=== PATIENT | female | born 1995 | race African-American/Black ===

== ENCOUNTER 2016-08-15 14:48 | Emergency (ER) | payer OTHER ==
[2016-08-15 14:54] VITALS: BP 126/60; PULSE 89; TEMP 98; BMI 27.3
--- NOTE | 2016-08-15 15:43 | PDOC ---
History of Present Illness - General Chief Complaint: Constipation Stated Complaint: BLOOD IN STOOL, CONSTIPATED Time Seen by Provider: 08/15/16 15:13 History Source: Patient Exam Limitations: No Limitations - History of Present Illness Travel History: No Initial Comments: 08/15/16 15:36 20 yr female states she has been constipated for 2 weeks was straining to have a bowel movement this am and noticed blood in the toilet. No abd pain no cramping no bleeding now. no medical history, pt admits to having a poor diet and thinks this is causing her constipation. Past History - Past Medical History Allergies/Adverse Reactions: Allergies Allergy/AdvReac Type Severity Reaction Status Date / Time cat dander Allergy Verified 08/15/16 14:54 No Known Drug Allergies Allergy Verified 08/15/16 14:54 Home Medications: Ambulatory Orders Polyethylene Glycol 3350 [Miralax (For Bowel Prep) -] 17 gm PO DAILY #1 bottle 08/15/16 - Surgical History Other Surgical History: 08/15/16 15:38 none - Psycho/Social/Smoking Cessation Hx Suicidal Ideation: No Smoking History: Never smoked Information on smoking cessation initiated: No Hx Alcohol Use: No Drug/Substance Use Hx: No Substance Use Type: None Abd/GI Specific PMHX - Complaint Specific PMHX Colitis: No Diverticulitis: No Gall Bladder Disease: No GERD: No Hepatitis: No Irritable Bowel Synd (IBS): No Pancreatitis: No GI Ulcer Disease: No Review of Systems - Review of Systems Able to Perform ROS?: Yes Is the patient limited Ugandan proficient: No Constitutional: No: Symptoms Reported HEENTM: No: Symptoms Reported Respiratory: No: Symptoms reported Cardiac (ROS): No: Symptoms Reported ABD/GI: Yes: Symptoms Reported : No: Symptoms Reported *Physical Exam - Vital Signs Last Vital Signs Temp Pulse Resp BP Pulse Ox 98 F 89 18 126/60 99 08/15/16 14:51 08/15/16 14:51 08/15/16 14:51 08/15/16 14:51 08/15/16 14:51 - Physical Exam General Appearance: Yes: Nourished, Appropriately Dressed HEENT: positive: EOMI, VONNIE, Normal ENT Inspection, TMs Normal, Pharynx Normal Neck: positive: Supple. negative: Tender Respiratory/Chest: positive: Lungs Clear, Normal Breath Sounds Cardiovascular: positive: Regular Rhythm, Regular Rate Gastrointestinal/Abdominal: positive: Normal Bowel Sounds, Soft. negative: Tender Rectal Exam: positive: normal exam, normal rectal tone. negative: hemorrhoids Musculoskeletal: positive: Normal Inspection Extremity: positive: Normal Inspection, Normal Range of Motion Integumentary: positive: Normal Color, Dry, Warm Neurologic: positive: Fully Oriented, Alert, Normal Mood/Affect, Normal Response , Motor Strength 5/5 Medical Decision Making - Medical Decision Making 08/15/16 15:38 cc: constipation with blood noted in toilet while straining to have BM no abd pain or cramping, neg nvd 08/15/16 16:18 vitals stable no bleeding no abd pain *DC/Admit/Observation/Transfer Diagnosis at time of Disposition: Constipation Qualifiers: Constipation type: unspecified constipation type Qualified Code(s): K59.00 - Constipation, unspecified - Discharge Dispostion Disposition: HOME Condition at time of disposition: Good - Prescriptions Prescriptions: Polyethylene Glycol 3350 [Miralax (For Bowel Prep) -] 17 gm PO DAILY #1 bottle - Referrals Referrals: STAFF,NOT ON [Primary Care Provider] - Cresencio Agudelo MD [Staff Physician] - - Patient Instructions Printed Discharge Instructions: DI for Constipation Additional Instructions: Miralax as directed go to the [facility] and get a Fleets enema to help you have a bowel movement drink Prune Juice or eat Prunes daily to help follow with the soaker meat Dr. Agudelo for follow up if no improvement or worsening symptoms return to the ER
== END 2016-08-15 16:19 | disposition home or self-care (01) ==
LOC: JERFT 14:48
DX: K59.00 Constipation, unspecified (principal)
CPT/HCPCS: 99281-25

== ENCOUNTER 2016-10-21 20:32 | Emergency (ER) | payer OTHER ==
[2016-10-21 20:41] VITALS: BP 117/57; PULSE 82; TEMP 98.1; BMI 29.6
[2016-10-21] MEDS ORDERED: CEPHALEXIN MONOHYDRATE 500 MG CAPSULE (UD) PO ONE (21:47)
[2016-10-21] MEDS ORDERED: CEPHALEXIN MONOHYDRATE 500 MG CAPSULE (UD) ONE (21:51)
--- NOTE | 2016-10-21 21:53 | PDOC ---
History of Present Illness - General Chief Complaint: Rash Stated Complaint: FOOT RASH Time Seen by Provider: 10/21/16 21:01 History Source: Patient Exam Limitations: No Limitations - History of Present Illness Initial Comments: 10/21/16 21 My chief complaint: Flare of of eczema left arm bilateral feet History of present illness: Patient is a 20-year-old female with a history of eczema here today complaining of having a flare up of her eczema. Patient has patchy dry skin noted on left dorsal elbow area and bilateral feet. Patient reports that right foot is worse with cracking of skin and oozing of yellowish discharge for the last few days. Patient has been moisturizing her scan with set of fell and use her and EUCERIN. Denies any fever. Patient denies any other symptoms. Timing/Duration: getting worse Severity: moderate Associated Symptoms: reports: rash (EZCEMA RASH LEFT MEDIAL ELBOWS, B/L FEET, RT. FOOT RASH SCALEY WITH CRACKING OF SKIN ) Past History - Past Medical History Allergies/Adverse Reactions: Allergies Allergy/AdvReac Type Severity Reaction Status Date / Time cat dander Allergy Verified 10/21/16 20:41 No Known Drug Allergies Allergy Verified 10/21/16 20:41 Home Medications: Ambulatory Orders Cephalexin Monohydrate [Keflex -] 500 mg PO Q8H #21 capsule 10/21/16 Triamcinolone 0.025% Ointment [Aristocort 0.025% Ointment -] 1 applic TP BID #1 tube MDD 2 10/21/16 Other medical history: EZCEMA - Psycho/Social/Smoking Cessation Hx Suicidal Ideation: No Smoking History: Never smoked Have you smoked in the past 12 months: No Information on smoking cessation initiated: No Hx Alcohol Use: No Drug/Substance Use Hx: No Substance Use Type: None Review of Systems - Review of Systems Able to Perform ROS?: Yes Constitutional: No: Symptoms Reported HEENTM: No: Symptoms Reported Respiratory: No: Symptoms reported Cardiac (ROS): No: Symptoms Reported ABD/GI: No: Symptoms Reported : No: Symptoms Reported Musculoskeletal: No: Symptoms Reported Integumentary: Yes: Rash (SCALEY RASH LEFT MEDIAL ELBOW, B/L DORSAL FEET, RIGHT FOOT OPEN AREA NOTED IN CENTER OF SCALEY RASH ) Neurological: No: Symptoms reported *Physical Exam - Vital Signs Last Vital Signs Temp Pulse Resp BP Pulse Ox 98.1 F 82 18 117/57 98 10/21/16 20:39 10/21/16 20:39 10/21/16 20:39 10/21/16 20:39 10/21/16 20:39 - Physical Exam General Appearance: Yes: Appropriately Dressed Respiratory/Chest: positive: Lungs Clear, Normal Breath Sounds. negative: Chest Tender, Respiratory Distress Cardiovascular: positive: Regular Rhythm, Regular Rate, S1, S2 Vascular Pulses: Dorsalis-Pedis (R): 4+, Doralis-Pedis (L): 4+ Integumentary: positive: Other (SCALEY PATCH LIKE RASH LEFT ELBOW AREA DORSAL, LEFT FOOT MULTIPLE AREAS OF SCALEY DRY PATCHES, RT. FOOT MULTIPLE AREAS OF DRY SCALEY PATCHES WITH TINY OPEN AREA ON RASH DORSAL FOOT) Procedures - Consent Consent obtained: Verbal, From Patient - Additional Procedures Progress: 10/21/16 21:53 Rash on right dorsal foot with TELFA AND ASHA Medical Decision Making - Medical Decision Making 10/21/16 21:56 Patient is a 20-year-old female with a history of eczema here today complaining of having a flare up of her eczema. Patient has patchy dry skin noted on left dorsal elbow area and bilateral feet. Patient reports that right foot is worse with cracking of skin and oozing of yellowish discharge for the last few days. Patient has been moisturizing her scan with set of fell and use her and EUCERIN. Denies any fever. Patient denies any other symptoms. EZCEMA EXACERBATION PLAN: Cleansed areas on right foot with Betadine and normal saline 0.9% dry. Apply bacitracin ointment with Cherie and Asha Keflex 500 mg by mouth now then every 8 hours 7 days Triaminicialone OINTMENT 0.025 % APPLY TO RASH BID *DC/Admit/Observation/Transfer Diagnosis at time of Disposition: Acute eczema - Discharge Dispostion Disposition: HOME Condition at time of disposition: Stable - Prescriptions Prescriptions: Triamcinolone 0.025% Ointment [Aristocort 0.025% Ointment -] 1 applic TP BID #1 tube MDD 2 Cephalexin Monohydrate [Keflex -] 500 mg PO Q8H #21 capsule - Referrals Referrals: Carla Mauricio MD [Primary Care Provider] - El Hernandez [Non Staff, Medical] - - Patient Instructions Additional Instructions: fOLLOW Up with window draper as soon as possible Cleanse areas on right foot that have discharge with antibacterial soap and water pat dry and apply a tiny amount of bacitracin ointment twice daily until healed Make sure you do not dry her skin thoroughly when getting out of the shower or bath limited remain moist and apply Eucerin cream or CETAPHIL Return to emergency room if symptoms worsen any fever PATIENT VOICED UNDERSTANDING OF Discharge instructions and all questions were answered
== END 2016-10-21 22:10 | disposition home or self-care (01) ==
LOC: JERFT 20:32 → SUPCPDRO 20:32 → JERFT 22:10
DX: L30.9 Dermatitis, unspecified (principal); L85.3 Xerosis cutis
CPT/HCPCS: 99281-25

== ENCOUNTER 2017-03-29 20:59 | Emergency (ER) | payer SELFPAY ==
--- NOTE | 2017-03-29 21:11 | PDOC ---
Rapid Medical Evaluation Chief Complaint: Pain Time Seen by Provider: 03/29/17 21:10 Medical Evaluation: Allergies Allergy/AdvReac Type Severity Reaction Status Date / Time cat dander Allergy Verified 03/29/17 21:05 No Known Drug Allergies Allergy Verified 03/29/17 21:05 Vital Signs Temp Pulse Resp BP Pulse Ox 98.1 F 83 20 126/65 100 03/29/17 21:06 03/29/17 21:06 03/29/17 21:06 03/29/17 21:06 03/29/17 21:06 03/29/17 21:10 I have performed a brief in-person evaluation of this patient. The patient presents with a chief complaint of: Left Ear Pain and Headache. Pertinent physical exam findings: Left Cerumen Impaction I have ordered the following: none. The patient will proceed to the ED for further evaluation Discharge Disposition - Referrals Referrals: Carla Mauricio MD [Primary Care Provider] - - Patient Instructions - Post Discharge Activity
[2017-03-29 21:14] VITALS: BP 126/65; PULSE 83; TEMP 98.1; BMI 29.2
--- NOTE | 2017-03-29 21:51 | PDOC ---
History of Present Illness - General Chief Complaint: Pain Stated Complaint: HEADACHE Time Seen by Provider: 03/29/17 21:10 History Source: Patient Exam Limitations: No Limitations - History of Present Illness Initial Comments: 03/29/17 21:56 My chief complaint: Headache 6 days and left ear clogged sensation History of present illness: Patient is a 21 year old female with history of eczema here today complaining of a frontal headache 6 days and slightly decreased hearing left ear with a clogged sensation. Patient reports that headache has waxed and waned has not been the worst headache ever does not wake her up from a sound sleep. Patient reports intermittent nausea. Patient denies any sore throat, cough, or any other symptoms. 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 Timing/Duration: intermittent (headache for 6 days, left ear cerumen impaction) Associated Symptoms: reports: headaches (frontal headache x 6 days ), other ( decreased hearing left ear) Past History - Past Medical History Allergies/Adverse Reactions: Allergies Allergy/AdvReac Type Severity Reaction Status Date / Time cat dander Allergy Verified 03/29/17 21:05 No Known Drug Allergies Allergy Verified 03/29/17 21:05 Home Medications: Ambulatory Orders Naproxen [Naprosyn -] 500 mg PO Q12H PRN #14 tablet 03/29/17 COPD: No Other medical history: Pt denies - Suicide/Smoking/Psychosocial Hx Smoking History: Never smoked Have you smoked in the past 12 months: No Information on smoking cessation initiated: No Hx Alcohol Use: No Drug/Substance Use Hx: No Substance Use Type: None Review of Systems - Review of Systems Able to Perform ROS?: Yes Constitutional: No: Symptoms Reported HEENTM: Yes: Hearing Loss (left ear clogged sensation ) Respiratory: No: Symptoms reported Cardiac (ROS): No: Symptoms Reported ABD/GI: No: Symptoms Reported : No: Symptoms Reported Musculoskeletal: No: Symptoms Reported Integumentary: No: Symptoms Reported Neurological: Yes: Headache (frontal headache x 6 days ) *Physical Exam - Vital Signs Last Vital Signs Temp Pulse Resp BP Pulse Ox 98.1 F 83 20 126/65 100 03/29/17 21:06 03/29/17 21:06 03/29/17 21:06 03/29/17 21:06 03/29/17 21:06 - Physical Exam General Appearance: Yes: Appropriately Dressed HEENT: positive: EOMI, VONNIE, TMs Normal (rt. ), Pharyngeal Erythema, Tonsillar Erythema (with no uvular deviation), Nasal Congestion (left nostril edema superior turbinate), Hearing Grossly Normal (b/l ), Other (cerumen left ear unable to see TM). negative: Tonsillar Exudate, Rhinorrhea, Sinus Tenderness Neck: negative: Lymphadenopathy (R), Lymphadenopathy (L) Respiratory/Chest: positive: Lungs Clear, Normal Breath Sounds. 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 negative: Numbness, Sensory Deficit Procedures - Consent Consent obtained: From Patient - Additional Procedures Progress: 03/29/17 22:55 LEFT EAR IRRIGATED WITH WARM WATER LARGE AMT OF CERUMEN REMOVED TM INTACT NON BULGING, NON ERYTHEMATOUS, HEARING IMPROVED Medical Decision Making - Medical Decision Making 03/29/17 21:58 Patient is a 21 year old female with history of eczema here today complaining of a frontal headache 6 days and slightly decreased hearing left ear with a clogged sensation. Patient reports that headache has waxed and waned has not been the worst headache ever does not wake her up from a sound sleep. Patient reports intermittent nausea. Patient denies any sore throat, cough, or any other symptoms. 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 Headache pharyngitis r/o strep left ear cerumen impaction PLAN: throat C & S rapid NEGATIVE urine hcg NEGATIVE 03/29/17 22:54 FEELING BETTER NAPROSYN 500 MG PO NOW THAN Q 12 HRS PRN PAIN LEFT EAR IRRIGATED LARGE AMOUNT OF CERUMEN REMOVED 03/29/17 22:56 HEADACHE HAS LESSENED 03/29/17 23:00 *DC/Admit/Observation/Transfer Diagnosis at time of Disposition: Impacted cerumen of left ear Head ache Qualifiers: Headache type: unspecified Headache chronicity pattern: unspecified pattern Intractability: not intractable Qualified Code(s): R51 - Headache - Discharge Dispostion Disposition: HOME Condition at time of disposition: Stable - Prescriptions Prescriptions: Naproxen [Naprosyn -] 500 mg PO Q12H PRN #14 tablet PRN Reason: Pain - Referrals Referrals: Carla Mauricio MD [Primary Care Provider] - - Patient Instructions Additional Instructions: FOLLOW UP WITH PRIMARY IN THE NEXT COUPLE OF DAYS RETURN TO EMERGENCY ROOM IF SYMPTOMS WORSEN OR REOCCUR PATIENT VOICED UNDERSTANDING OF DISCHARGE INSTRCUCTIONS AND ALL QUESTIONS WERE ANSWERED - Post Discharge Activity
== END 2017-03-29 23:05 | disposition home or self-care (01) ==
LOC: JER 20:59
PROC: 3E1B78Z Irrigation of Ear using Irrigating Substance, Via Natural or Artificial Opening (ICD-10-PCS; principal; 2017-03-29)
DX: H61.22 Impacted cerumen, left ear (principal); R51 Headache
CPT/HCPCS: 84703; 87070; 87430; 99281-25

== ENCOUNTER 2017-11-16 00:16 | Emergency (ER) | payer OTHER ==
[2017-11-16 00:21] VITALS: BP 119/57; PULSE 76; TEMP 98.6; BMI 30.2
--- NOTE | 2017-11-16 00:56 | PDOC ---
History of Present Illness - General Chief Complaint: Sore Throat Stated Complaint: SORE THROAT Time Seen by Provider: 11/16/17 00:30 - History of Present Illness Initial Comments: 11/16/17 00:45 22 yo F with no significant pmh who p/w sore throat. Patient reports worsening burning throat over the past 2 days. Also endorses chest/nasal pressure. Pain with swallowing, PO fluid and food intake. Recently seen in [facility] ED for sore throat (11/13/17) with neg strep testing. Attempted OTC analgesia, NSAIDS, chloraseptic sprays with no relief. Patient denies N/V, F,C, SOB, urinary complaints, abdominal pain, diarrhea, constipation, lightheadedness, weakness, sensory changes. PMHx: as noted above ROS: as noted SHx: Denies Etoh, tobacco, IVDA. Allergies: NKDA Past History - Past Medical History Allergies/Adverse Reactions: Allergies Allergy/AdvReac Type Severity Reaction Status Date / Time cat dander Allergy Verified 11/16/17 00:21 No Known Drug Allergies Allergy Verified 11/16/17 00:21 Home Medications: Ambulatory Orders Naproxen [Naprosyn -] 500 mg PO Q12H PRN #14 tablet 03/29/17 COPD: No - Suicide/Smoking/Psychosocial Hx Smoking History: Never smoked Have you smoked in the past 12 months: No Hx Alcohol Use: No Drug/Substance Use Hx: No Substance Use Type: None Review of Systems - Review of Systems Comments:: 11/16/17 00:45 GENERAL/CONSTITUTIONAL: No fever or chills. No weakness. HEAD, EYES, EARS, NOSE AND THROAT: + Sore throat. No change in vision. No ear pain or discharge. CARDIOVASCULAR: No chest pain or shortness of breath RESPIRATORY: No cough, wheezing, or hemoptysis. GASTROINTESTINAL: No nausea, vomiting, diarrhea or constipation. GENITOURINARY: No dysuria, frequency, or change in urination. MUSCULOSKELETAL: No joint or muscle swelling or pain. No neck or back pain. SKIN: No rash NEUROLOGIC: No headache, vertigo, loss of consciousness, or change in strength/ sensation. ENDOCRINE: No increased thirst. No abnormal weight change HEMATOLOGIC/LYMPHATIC: No anemia, easy bleeding, or history of blood clots. ALLERGIC/IMMUNOLOGIC: No hives or skin allergy. *Physical Exam - Vital Signs Last Vital Signs Temp Pulse Resp BP Pulse Ox 98.6 F 76 18 119/57 100 11/16/17 00:19 11/16/17 00:19 11/16/17 00:19 11/16/17 00:19 11/16/17 00:19 - Physical Exam Comments: 11/16/17 00:45 GENERAL: Awake, alert, and fully oriented, in no acute distress HEAD: No signs of trauma, normocephalic, atraumatic EYES: PERRLA, EOMI, sclera anicteric, conjunctiva clear ENT: Post oropharynx slightly erythematous. Auricles normal inspection, hearing grossly normal, nares patent, oropharynx without exudates. Moist mucosa NECK: Normal ROM, supple, no lymphadenopathy, JVD, or masses LUNGS: No distress, speaks full sentences, clear to auscultation bilaterally HEART: Regular rate and rhythm, normal S1 and S2, no murmurs, rubs or gallops, peripheral pulses normal and equal bilaterally. EXTREMITIES : Normal inspection, Normal range of motion, no edema. No clubbing or cyanosis. SKIN: Warm, Dry, normal turgor, no rashes or lesions noted Medical Decision Making - Medical Decision Making 11/16/17 01:46 22 yo F with no significant pmh who p/w sore throat. VSS, AF. Post. oropharynx slightly erythematous, with absent exudates, tonsilar swelling, uvular deviation. Pain likely 2/2 viral pharyngitis. Low suspicion paratonsilar abscess , retropharyngeal abscess, strep pharyngitis, mononucleosis. Ed course: Dexamethaosne 10 mg, Perocoet, Viscous lidocaine. Patient pain improved. Stable for d/c with return precautions. *DC/Admit/Observation/Transfer Diagnosis at time of Disposition: Sore throat (viral) - Discharge Dispostion Condition at time of disposition: Stable Decision to Admit order: No - Referrals Referrals: Carla Mauricio MD [Primary Care Provider] - - Patient Instructions Printed Discharge Instructions: DI for Viral Pharyngitis Additional Instructions: Please return to the emergency department with any new or worsening symptoms or concerns. Please follow up with your primary care physician within 72 hours. - Post Discharge Activity - Transfer to Acute Care Facility Transfer comment: 11/16/17 00:46 - Attestations Physician Attestion: 11/16/17 00:46 I attest to the information provided in this note.
[2017-11-16] MEDS ORDERED: LIDOCAINE VISCOUS 2% ORAL/TOP 20 ML UNIT-DOSE CUP MM ONE (01:41)
[2017-11-16] MEDS ORDERED: DEXAMETHASONE 4 MG TABLET (FP) PO ONE (01:45)
[2017-11-16] MEDS ORDERED: LIDOCAINE VISCOUS 2% ORAL/TOP 20 ML UNIT-DOSE CUP ONE (02:36)
[2017-11-16] MEDS ORDERED: DEXAMETHASONE SOD PHOSPHATE 10 MG/1 ML VIAL ONE (02:37)
[2017-11-16] MEDS ORDERED: IBUPROFEN 600 MG TABLET (FP) PO ONE (02:43)
--- NOTE | 2017-11-16 02:43 | PDOC ---
Attending Attestation - [facility] HPI: 11/16/17 02:50 The patient is a 22 year old female with no past medical history who presents to the emergency department for evaluation of sore throat. The patient reports a 2 day history of worsening sore throat, described as a burning sensation. Pt reports associated symptoms of chest pressure and dysphagia. She reports taking NSAIDS and chloraseptic sprays with no alleviation to aforementioned symptoms. Of note, the patient was recently seen in our facility for sore throat (11/13/17 ) with negative strep testing. The patient denies shortness of breath, headache, lightheadedness, sensory changes, fever, chills, nausea, vomiting, and any bowel/urinary symptoms. Allergies: Cat dander, NKDA Social History: No reported alcohol, cigarette, or drug use. Surgical History: Pt denies. PCP: Dr. Carla Mauricio ([phone]) - Physicial Exam PE: General Appearance: Yes: Appropriately Dressed. No: Apparent Distress, Intoxicated HEENT: positive: EOMI, VONNIE, Normal ENT Inspection, Normal Voice, TMs Normal, Pharynx Normal. negative: Pale Conjunctivae, Photophobia, Scleral Icterus (R), Scleral Icterus (L) Neck: positive: Trachea midline, Normal Thyroid, Supple. negative: Tender, Rigid, Carotid bruit, Stridor, Lymphadenopathy (R), Lymphadenopathy (L), Thyromegaly Respiratory/Chest: positive: Lungs Clear, Normal Breath Sounds. negative: Chest Tender, Respiratory Distress, Accessory Muscle Use, Labored Respiration, RES, Crackles, Rales, Rhonchi, Stridor, Wheezing, Dullness Cardiovascular: positive: Regular Rhythm, Regular Rate, S1, S2. negative: Edema , JVD, Murmur, Bradycardia, Tachycardia Vascular Pulses: Dorsalis-Pedis (R): 2+, Doralis-Pedis (L): 2+ Gastrointestinal/Abdominal: positive: Normal Bowel Sounds, Flat, Soft. negative : Tender, Organomegaly, Pulsatile Mass, Increased Bowel Sounds, Decreased BS, Distended, Guarding, Rebound, Hernia, Hepatomegaly, Spleenomegaly Lymphatic: negative: Adenopathy, Tenderness Musculoskeletal: positive: Normal Inspection. negative: CVA Tenderness, Decreased Range of Motion Extremity: positive: Normal Capillary Refill, Normal Inspection, Normal Range of Motion, Pelvis Stable. negative: Tender, Pedal Edema, Swelling, Erythema Integumentary: positive: Normal Color, Dry, Warm. 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 negative: EOM Palsy, Facial Droop, Sensory Deficit <Sawyer Trejo - Last Filed: 11/16/17 05:02> - Resident Resident Name: Peter Riojas - ED Attending Attestation I have performed the following: I have examined & evaluated the patient, The case was reviewed & discussed with the resident, I agree w/resident's findings & plan, Exceptions are as noted - Medical Decision Making 11/16/17 19:48 Pt treated and released. <Joseph Wells - Last Filed: 11/16/17 19:48> Attestations - Attestations Documentation prepared by Sawyer Trejo, acting as paramedical aide for Joseph Wells DO. <Sawyer Trejo - Last Filed: 11/16/17 05:02>
== END 2017-11-16 03:49 | disposition home or self-care (01) ==
LOC: JER 00:16
DX: J02.9 Acute pharyngitis, unspecified (principal); B97.89 Other viral agents as the cause of diseases classified elsewhere
CPT/HCPCS: 99281-25

== ENCOUNTER 2019-02-08 21:55 | Emergency (ER) | payer OTHER ==
[2019-02-08 22:31] VITALS: BP 104/67; PULSE 86; TEMP 98.2; BMI 27.8
[2019-02-08] MEDS ORDERED: guaiFENesin/CODEINE 10 ML UNIT-DOSE CUPS PO ONE (22:39)
[2019-02-08] MEDS ORDERED: guaiFENesin/CODEINE 5 ML UNIT-DOSE CUPS PO ONE (22:40)
--- NOTE | 2019-02-08 22:46 | PDOC ---
History of Present Illness - General Chief Complaint: Respiratory Stated Complaint: COUGH Time Seen by Provider: 02/08/19 22:33 History Source: Patient Exam Limitations: Clinical Condition - History of Present Illness Initial Comments: 02/08/19 22:40 Patient with no significant past medical history present with complaint of 2 weeks history of persistent cough with yellow sputum, nasal congestion and intermittent midsternal chest pain from coughing. Patient reports she was seen in urgent care week ago for symptoms and given albuterol inhaler for cough but has not been helping. Denies fever, chills, sore throat, nausea or vomiting. Denies shortness of breath, palpitation, numbness or tingling sensation, dizziness, weakness. Denies any other symptoms Is this a multiple visit Asthma Patient?: No Timing/Duration: other Past History - Past Medical History Allergies/Adverse Reactions: Allergies Allergy/AdvReac Type Severity Reaction Status Date / Time cat dander Allergy Verified 11/16/17 00:21 No Known Drug Allergies Allergy Verified 11/16/17 00:21 Home Medications: Ambulatory Orders Naproxen [Naprosyn -] 500 mg PO Q12H PRN #14 tablet 03/29/17 Dextrometh/Benzocaine/Menthol [Chloraseptic Total Lozenge] 1 each PO PRN PRN # 30 lozenge 11/16/17 Dextrometh/Benzocaine/Menthol [Chloraseptic Total Lozenge] 1 each PO QID PRN # 30 lozenge 11/16/17 Ibuprofen 600 mg PO QID PRN #30 tablet MDD 4 tab 11/16/17 Ibuprofen 600 mg PO QID PRN #30 tablet MDD 4 tab 11/16/17 Phenol/Glycerin [Chloraseptic Max [place]] 30 ml MM PRN #1 spray 11/16/17 Phenol/Glycerin [Chloraseptic Max [place]] 30 ml MM PRN PRN #1 spray 11/16/17 Azithromycin [Zithromax 250mg Tablets -] 250 mg PO UTDICT #6 tab 02/08/19 Benzonatate [Tessalon Pearls -] 100 mg PO Q8H PRN #21 capsule 02/08/19 predniSONE [Deltasone -] 20 mg PO BID 5 Days #10 tablet 02/08/19 COPD: No - Immunization History Immunization Up to Date: Yes - Psycho Social/Smoking Cessation Hx Smoking History: Never smoked Have you smoked in the past 12 months: No Information on smoking cessation initiated: No Hx Alcohol Use: No Drug/Substance Use Hx: No Substance Use Type: None Review of Systems - Review of Systems Able to Perform ROS?: Yes Is the patient limited [place] proficient: No Constitutional: No: Chills, Fever, Malaise HEENTM: Yes: Symptoms Reported, See HPI, Nose Congestion. No: Eye Pain, Blurred Vision, Tearing, Recent change in vision, Double Vision, Cataracts, Ear Pain, Ocular Prothesis, Ear Discharge, Nose Pain, Tinnitus, Nose Bleeding, Hearing Loss, Throat Pain, Throat Swelling, Mouth Pain, Dental Problems, Difficulty Swallowing, Mouth Swelling, Other Respiratory: Yes: Symptoms reported, See HPI, Cough, Wheezing (intermittent). No: Orthopnea, Shortness of Breath, SOB with Exertion, SOB at Rest, Stridor, Productive cough, Hemoptysis, Other Cardiac (ROS): Yes: Symptoms Reported, See HPI, Chest Pain (intermittent midsternal pain from cough). No: Edema, Irregular Heart Rate, Lightheadedness, Palpitations, Syncope, Chest Tightness, Other ABD/GI: No: Nausea, Vomiting Integumentary: No: Symptoms Reported Neurological: No: Symptoms reported All Other Systems: Reviewed and Negative *Physical Exam - Vital Signs Last Vital Signs Temp Pulse Resp BP Pulse Ox 98.2 F 86 17 104/67 97 02/08/19 22:29 02/08/19 22:29 02/08/19 22:29 02/08/19 22:29 02/08/19 22:29 - Physical Exam Comments: 02/08/19 22:44 GENERAL: Well developed, well nourished. Awake and alert. No acute distress. HEENT: Normocephalic, atraumatic. PERRLA, EOMI. No conjunctival pallor. Sclera are non-icteric. Moist mucous membranes. Oropharynx is clear. NECK: Supple. Full ROM. CARDIOVASCULAR: Regular rate and rhythm. No murmurs, rubs, or gallops. Distal pulses are 2+ and symmetric. PULMONARY: No evidence of respiratory distress. Lungs clear to auscultation bilaterally. No wheezing, rales or rhonchi. ABDOMINAL: Soft. Non-tender. Non-distended. No rebound or guarding. No organomegaly. Normoactive bowel sounds. MUSCULOSKELETAL Normal range of motion at all joints. SKIN: Warm and dry. Normal capillary refill. No rashes. No cyanosis. NEUROLOGICAL: Alert, awake, appropriate. Gait is normal without ataxia. PSYCHIATRIC: Cooperative. Good eye contact. Appropriate mood General Appearance: Yes: Nourished, Appropriately Dressed. No: Apparent Distress Medical Decision Making - Medical Decision Making 02/08/19 22:42 Patient with no significant past medical history present with complaint of 2 weeks history of persistent cough with yellow sputum, nasal congestion and intermittent midsternal chest pain from coughing. Patient reports she was seen in urgent care week ago for symptoms and given albuterol inhaler for cough but has not been helping. Denies fever, chills, sore throat, nausea or vomiting. Denies shortness of breath, palpitation, numbness or tingling sensation, dizziness, weakness. Denies any other symptoms Exam significant for patient with hacking cough for exam. Lungs clear to auscultation bilateral. Patient in no acute respiratory distress. Given 2 weeks history of cough with colored sputum patient will be discharged home on Tessalon Perles and p.o. prednisone for cough with Z-Harvey antibiotics for bronchitis. Patient advised to increase fluid intake and follow-up with primary care. Patient stable for discharge Discharge - Discharge Information Problems reviewed: Yes Clinical Impression/Diagnosis: Bronchitis, Cough Condition: Stable Disposition: HOME - Admission No - Additional Discharge Information Prescriptions: Azithromycin [Zithromax 250mg Tablets -] 250 mg PO UTDICT #6 tab Benzonatate [Tessalon Pearls -] 100 mg PO Q8H PRN #21 capsule PRN Reason: Cough predniSONE [Deltasone -] 20 mg PO BID 5 Days #10 tablet - Follow up/Referral - Patient Discharge Instructions Patient Printed Discharge Instructions: DI for Acute Bronchitis Additional Instructions: Take medications as prescribed. Increase fluid intake. Follow-up with primary care - Post Discharge Activity
== END 2019-02-08 23:00 | disposition home or self-care (01) ==
LOC: JERFT 21:55
DX: J40 Bronchitis, not specified as acute or chronic (principal); Z91.048 Other nonmedicinal substance allergy status
CPT/HCPCS: 99281-25